=== PATIENT | male | born 1950 | race Caucasian/White ===

== ENCOUNTER → 2019-04-23 | Outpatient (CLI) | payer MEDICARE ==
[~2019-04-23] MED LIST: ACEB200C9 PO; ASPI-1181 PO; CAND32TA20 PO; DIGO125T87 PO; RAPAFLO PO
== END | disposition home or self-care (01) ==
LOC: OIH 09:36
PROVIDERS: ATTEND Internal Medicine
DX: M48.07 Spinal stenosis, lumbosacral region (principal); M47.817 Spondylosis without myelopathy or radiculopathy, lumbosacral region
CPT/HCPCS: 72100

== ENCOUNTER → 2022-04-02 | Outpatient (CLI) | payer MEDICARE, OTHER ==
[~2022-04-02] MED LIST changes: -ASPI-1181 PO; +ASPI-1443 PO; +DIGO125T71 PO; -DIGO125T87 PO
== END | disposition home or self-care (01) ==
LOC: RAH 14:14
PROVIDERS: ATTEND Internal Medicine
DX: M43.17 Spondylolisthesis, lumbosacral region (principal); R31.21 Asymptomatic microscopic hematuria; M47.817 Spondylosis without myelopathy or radiculopathy, lumbosacral region
CPT/HCPCS: 74176

== ENCOUNTER → 2025-03-15 | Outpatient (CLI) | payer OTHER ==
--- NOTE | 2025-03-16 10:19 | HMCIMG ---
EXAM: CT Cardiac calcium scoring. CLINICAL HISTORY: Screening. TECHNIQUE: Thin collimated axial CT cardiac images were obtained. A CT scan is done according to ALARA (As Low As Reasonably Achievable). CONTRAST: None. COMPARISON: CT Cardiac calcium scoring. 10/27/2014. FINDINGS: Calcium Score: VESSEL Number of lesions Volume mm3 Equi. Mass/mg Calcium score LM 1 48.2 - 64.0 LAD 4 111.0 - 159.9 LCX 0 0 - 0 RCA 1 30.3 - 43.2 Total 6 189.5 - 267.2 IMPRESSION: The total calcium score is 267.2. 58th percentile. Hepatic cysts. /[place]
== END | disposition home or self-care (01) ==
LOC: RAH 15:13
PROVIDERS: ATTEND Internal Medicine Cardiovascular Disease
DX: Z13.6 Encounter for screening for cardiovascular disorders (principal); K76.89 Other specified diseases of liver
CPT/HCPCS: 75571